=== PATIENT | female | born 2000 | race Caucasian/White ===

== ENCOUNTER 2022-05-13 22:57 | Emergency (ER) | payer OTHER ==
[~2022-05-13] VITALS: Ht 165.1 cm; Wt 61.2 kg
--- NOTE | 2022-05-14 00:30 | NUR ---
BIBBF FROM HOME C/O LLE PAIN & TINGLINESS SINCE 5PM. PATIENT IS [id number]. ABLE TO MAKE NEEDS KNOWN. VITALS CHECKED.
--- NOTE | 2022-05-14 01:10 | NUR ---
BRYON DONE AT BEDSIDE
[2022-05-14] MEDS ORDERED: IBUPROFEN 400 MG TABLET ONE (01:19)
[2022-05-14] MEDS: IBUPROFEN 400 MG TABLET PO ONE (01:26)
--- NOTE | 2022-05-14 03:43 | NUR ---
Patient discharged to home in stable condition. Written and verbal after care instructions given. Patient verbalizes understanding of instruction. pt ambulatory with a steady gait
[2022-05-14 03:47] VITALS: BP 98/74
== END 2022-05-14 03:47 | disposition home or self-care (01) ==
LOC: ER 23:07
DX: M79.662 Pain in left lower leg (principal)
CPT/HCPCS: 93971-TC